=== PATIENT | female | born 1960 | race Caucasian/White ===

== ENCOUNTER → 2019-07-19 | Outpatient (CLI) | payer OTHER ==
[2019-07-19 14:00] LABS: CREATININE 0.6 mg/dL (0.6-1.3)
[2019-07-19 14:01] VITALS: BP 134/73
[2019-07-19 14:51] VITALS: BP 111/65
[2019-07-19 15:30] VITALS: BP 123/69
== END ==
LOC: M.CT 06-25 09:30
PROVIDERS: Radiology Diagnostic Radiology
DX: J84.10 Pulmonary fibrosis, unspecified (principal)